=== PATIENT | female | born 1965 ===

== ENCOUNTER → 2018-09-28 23:19 | Outpatient (REF) | payer OTHER, SELFPAY ==
[2018-09-28 23:39] LABS: Add Manual Diff / Slide Review NO; Basophils Percent Auto 1.1 % (0-2); Eosinophils Percent Auto 2.2 % (2-4); Hemoglobin 14.7 g/dL (12.0-16.0); Lymphocytes Percent Auto 30.8 % (25-40); Mean Corpuscular HGB Conc 33.5 % (30-36); Mean Corpuscular Hemoglobin 30.8 PG (26-34); Monocytes Percent Auto 5.2 % (3-14); Neutrophils Absolute Auto 5000 /uL (3000-5900); Neutrophils Percent Auto 60.7 % (50-75); Platelet Count 293 X10^3/uL (150-400); Red Blood Cell Count 4.79 X10^6/uL (4.0-5.2); Red Cell Distribution Width 13.5 % (11.6-14.8); White Blood Cell Count 8.2 X10^3/uL (4.5-11.0)
[2018-09-29 00:58] LABS: Alanine Aminotransferase 26 IU/L (9-52); Albumin 4.1 g/dL (3.5-5.0); Albumin Globulin Ratio 1.9 (1.0-2.8); Alkaline Phosphatase 84 U/L (38-126); Aspartate Aminotransferase 18 IU/L (14-36); BUN Creatinine Ratio 15.7 (6-22); Bilirubin Total 0.1 mg/dL (0.2-1.3); Blood Urea Nitrogen 11 mg/dL (7-17); Calcium 9.2 mg/dL (8.4-10.2); Carbon Dioxide 27 mmol/L (22-32); Chloride 104 mmol/L (98-107); Estimated Glomerular Filt Rate > 60.0 mL/min (>60); Globulin 2.2 g/dL (1.7-4.1); Glucose 89 mg/dL (70-100); HEMOLYSIS < 15 (0-50); Potassium 4.3 mmol/L (3.4-5.1); Sodium 143 mmol/L (137-145); Total Protein 6.3 g/dL (6.3-8.2)
[2018-09-30 15:02] LABS: Progesterone 34.4 ng/mL
[2018-10-01 08:58] LABS: EBV EBNA Antibody IgG < 18.00 U/mL (< 18.00); EBV Virus IgM Ab < 36.00 U/mL (< 36.00)
== END ==
LOC: LAB 23:19
PROVIDERS: Visit Provider Acupuncturist
DX: R53.83 Other fatigue (principal); N95.9 Unspecified menopausal and perimenopausal disorder
CPT/HCPCS: 80053; 82670; 82677; 82679; 84144; 85025; 86663; 86664; 86665

== ENCOUNTER → 2018-10-13 21:39 | Outpatient (REF) | payer OTHER, SELFPAY ==
[2018-10-13 22:36] LABS: Free T3, Triiodothyronine Free 2.76 pg/mL (2.77-5.27); Free T4, Direct Thyroxine 0.71 ng/dL (0.78-2.19)
[2018-10-13 22:50] LABS: Thyroid Stimulating Hormone 1.94 uIU/mL (0.47-4.68)
[2018-10-13 23:43] LABS: Cortisol Random 12.1 ug/dL
[2018-10-16 15:38] LABS: Dehydroepiandrosterone Sulfate 177 mcg/dL (8-188)
[2018-10-16 17:00] LABS: Progesterone 0.6 ng/mL
[2018-10-18 16:21] LABS: C.albicans IgA 0.8; C.albicans IgG 0.8; C.albicans IgM 0.6 (<1.0)
[2018-10-19 15:24] LABS: Triiodothyronine T3 Reverse 10 ng/dL (8-25)
== END ==
LOC: LAB 21:39
PROVIDERS: Visit Provider Acupuncturist
DX: R53.82 Chronic fatigue, unspecified (principal); Z79.890 Hormone replacement therapy
CPT/HCPCS: 82533; 82627; 84144; 84439; 84443; 84481; 84482; 86628